=== PATIENT | male | born 1980 | race Caucasian/White ===

== ENCOUNTER 2020-07-05 10:07 | Emergency (ER) | payer OTHER, SELFPAY ==
--- NOTE | 2020-07-05 10:09 | ED.SKABFB ---
HPI - Skin/Abscess/Foreign Bdy General Chief complaint: Skin/Abscess/Foreign Body Stated complaint: mass on back Time Seen by Provider: 07/05/20 10:09 Source: patient and RN notes reviewed History of Present Illness HPI narrative: Patient is a 40-year-old male who presents the urgent care with complaints of an abscess to the left upper back. Patient states is been there for approximately 8 days and has gotten very painful in the last 2 days. Patient states he has been unable to sleep due to the pain. States that he has been using ibuprofen without any relief. Denies of any fever, chills, nausea, vomiting. No other acute complaints. No acute distress noted. Patient aware of the plan of care. Some parts of this dictation were generated by voice recognition software and may contain typographical and/or grammatical inaccuracies. Related Data Home Medications Medication Instructions Recorded Confirmed hydrochlorothiazide 25 mg PO DAILY 07/11/19 07/05/20 omeprazole 40 mg PO DAILY 07/11/19 07/05/20 sildenafil 25 mg PO DAILY 07/11/19 07/05/20 atorvastatin 40 mg PO DAILY 07/05/20 07/05/20 lisinopril 20 mg PO DAILY 07/05/20 07/05/20 Allergies Allergy/AdvReac Type Severity Reaction Status Date / Time morphine AdvReac Migraine Verified 07/05/20 10:22 Review of Systems Review of Systems: Narrative: CONSTITUTIONAL: Denies fever, chills, or sweats. EYES: Denies visual changes, redness, or discharge. ENT: Denies rhinorrhea, congestion, sore throat, or otalgia. CARDIOVASCULAR: Denies chest pain, palpitations, or edema. RESPIRATORY: Denies cough or dyspnea. GASTROINTESTINAL: Denies abdominal pain, nausea, vomiting, or diarrhea. GENITOURINARY: Denies dysuria or hematuria. SKIN: Reports an abscess to the left upper back MUSCULOSKELETAL: Denies back pain, joint pain, or myalgia. NEUROLOGIC: Denies headache, numbness, or weakness. All other systems reviewed are negative, except as documented in HPI. [facility] Social History Social History Gender identity (if verbalized by the patient): Male Comments At the time of my signature, I reviewed and agree with the nursing past medical, surgical, social, and family history. There is no relevant family history pertinent to the patient complaint. Exam Narrative: Exam Narrative: GENERAL: This is a well-nourished, well-developed patient, in no apparent distress. HEAD: normocephalic, atraumatic. EYES: PERRL. Sclera clear/white. Vision is grossly intact. EARS: External ears normal NOSE: External nose normal with no obvious nasal discharge, nares without redness, no rhinorrhea. THROAT: Mucous membranes moist NECK: Neck supple SKIN: 5 x 6.5 cm erythemic tender abscess located to the left scapular region with mild surrounding ecchymosis NEURO: awake, alert, and oriented to person, place and time. There were no obvious focal neurologic abnormalities. EXTREMITIES: No clubbing, cyanosis, or edema. Course Vital Signs Vital signs: Vital Signs Temperature 99.6 F 07/05/20 10:14 Pulse Rate 91 07/05/20 10:14 Respiratory Rate 16 07/05/20 10:14 Blood Pressure 149/97 H 07/05/20 10:14 Pulse Oximetry 98 07/05/20 10:14 Temperature 99.6 F 07/05/20 10:25 Pulse Rate 91 07/05/20 10:25 Respiratory Rate 16 07/05/20 10:25 Blood Pressure 149/97 H 07/05/20 10:25 Pulse Oximetry 98 07/05/20 10:25 Reviewed-patient is informed that they may have pre-hypertension or hypertension based on a blood pressure reading in the department. I recommend the patient call the primary care provider listed on their discharge instructions or a physician of their choice this week to arrange follow-up for further evaluation of possible pre-hypertension or hypertension. MDM - Skin/Abscess/Foreign Bdy MDM Narrative Medical decision making narrative: Advised the patient not to attempt to drain the abscess. It is starting to drain on its own. A warm comp
[2020-07-05 10:14] VITALS: BP 149/97; PULSE 91; RESP 16; TEMP 37.6; O2SAT 98
[2020-07-05 10:25] VITALS: BP 149/97; PULSE 91; RESP 16; TEMP 37.6; O2SAT 98
== END 2020-07-05 10:33 | disposition home or self-care (01) ==
PROVIDERS: Emergency Provider Nurse Practitioner Family; PCP Family Medicine
DX: L02.212 Cutaneous abscess of back [any part, except buttock and flank] (principal); E78.00 Pure hypercholesterolemia, unspecified; I10 Essential (primary) hypertension; K21.9 Gastro-esophageal reflux disease without esophagitis
CPT/HCPCS: 99213; G0463

== ENCOUNTER → 2021-10-11 02:45 | Outpatient (CLI) | payer BC, SELFPAY ==
[2021-10-11 11:33] LABS: SARS-CoV-2 RNA PCR Negative
== END ==
PROVIDERS: PCP Family Medicine; Visit Provider Surgery
DX: Z01.812 Encounter for preprocedural laboratory examination (principal); Z20.822 Contact with and (suspected) exposure to COVID-19
CPT/HCPCS: C9803; U0003; U0005

== ENCOUNTER 2021-10-11 08:46 | Outpatient (CLI) | payer BC, SELFPAY ==
[2021-10-11 09:27] LABS: Anion Gap 6 mmol/L (8-16); Blood Urea Nitrogen 15 mg/dL (9-20); Calcium 9.5 mg/dL (8.4-10.2); Carbon Dioxide 31 mmol/L (22-30); Chloride 99 mmol/L (98-107); Estimated Glomerular Filt Rate > 60; Glucose 119 mg/dL (65-110); Sodium 136 mmol/L (137-145)
--- NOTE | 2021-10-11 09:45 | ECG_ITS ---
Measurements Intervals [place] Rate: 81 P: 59 OK: 136 QRS: -2 QRSD: 123 T: 12 QT: 360 QTc: 420 Interpretive Statements SINUS RHYTHM BASELINE ARTIFACT BORDERLINE ECG NO PREVIOUS ECG AVAILABLE FOR COMPARISON Electronically Signed On 10-11-2021 17:14:49 CDT by Nathan Johnson M.D.
== END 2021-10-11 08:47 | disposition home or self-care (01) ==
LOC: ANHSURGERY 08:50
PROVIDERS: Anesthesiology; PCP Family Medicine; Visit Provider Surgery
DX: Z01.818 Encounter for other preprocedural examination (principal); I10 Essential (primary) hypertension
CPT/HCPCS: 36415; 80048; 93005

== ENCOUNTER 2021-10-14 01:02 | Day surgery (SDC) | payer BC, SELFPAY ==
[2021-10-09 09:29] VITALS: BMI 34.0
--- NOTE | 2021-10-09 09:30 | PC.NURSE ---
Report to the Outpatient Waiting Room, entrance under the green pavilion located off [facility], at time 1100__ on date10/14/21__. OR Time: 1300___. - You and your visitor will be asked a series of questions to screen for COVID 19 for your protection. - A mask is required within the hospital. Preoperative COVID Testing Requirements: No COVID Test needed if: (proof is required; if not received patient will have Rapid Test prior to entry) - Patient has received COVID Vaccine at least 14 days prior to procedure date or - Patient has positive COVID test result within last 90 days of surgery date. COVID Test needed if above criteria is not met If not COVID vaccinated a COVID test must be conducted within 72 hours of surgery and patient is asked to isolate self from time of testing until procedure. You will go to the [facility] for your COVID testing. The [facility] site is located at the corner of [address] [facility]. You will only be called if COVID results are positive and your surgeon may reschedule your elective surgery date. Patients may have clear liquids (water, carbonated beverages, clear teas, apple juice) until 3 hours prior to surgery with a maximum of 20 ounces. - No food from midnight until time of surgery - Infants may have breast milk until 4 hours before surgery, formula 6 hours prior to surgery. - Children will be allowed to drink immediately following surgery. If applicable, please bring a bottle or sippy cup to assist with drinking. Juice, water, soda, and popsicles are readily available. For infants on formula, please bring formula the day of surgery. Pacifiers are allowed. Take the following medications with a SIP of water the morning of surgery: PAIN PILL IF NEEDED Medications to discontinue per physician VIT D3 Date to take last dose 10/09/21 Please no make-up, nail khmer, hairspray, perfume, deodorant, or body powder the day of surgery. No jewelry (including any body piercings) or valuables the day of surgery, leave them at home. Please take a shower or bath the night before, or the morning of, surgery with an antibacterial soap. Wear comfortable, loose fitting clothing. Children are encouraged to wear pajamas. - Jewelry must be removed prior to entering the operating room. Rings and piercings that are not removed may be cut off. - The hospital will not accept responsibility for valuables. - Please leave all valuables, including medications, at home the day of surgery. If you are going home after surgery, a licensed fleet driver must drive you home. - NO public transportation without another adult. - We recommend that an adult stay with you for 24 hours following discharge. - We also recommend that you do not drive, make important decision, drink alcoholic beverages, or take any drugs that were not prescribed by your health care provider for at least 24 hours after your discharge time. For Pediatric surgeries, we recommend two adults accompany the child home (only one inside the building at this time). One visitor will be allowed to accompany the patient into the hospital. Patients visitor will be instructed to remain with patient at all times or leave the building. We will allow the visitor to come back to the postoperative area when patient is ready. Follow any additional instructions given to you from your surgeon. Telephone instructions given to __PATIENT and asked if any additional questions and then verbalized understanding. Patient advised to call surgeon office or pre surgery nurse liaison [phone] if any additional questions.
[2021-10-14] VITALS (9 sets, daily range): BP systolic 85–116; BP diastolic 46–77; PULSE 58–85; RESP 12–18; TEMP 36.2–36.7; O2SAT 93–100
--- NOTE | 2021-10-14 11:26 | WPDHPUPDATE1 ---
History and Physical Update Update Date/Time: 10/14/21 11:26 History and Physical has been reviewed, including an updated exam of the patient. There are NO changes in the patient's condition. Risks, benefits, and alternatives have been discussed and questions answered. Patient agrees to proceed with procedure.
[2021-10-14] MEDS: ACETAMINOPHEN 500 MG TABLET 1000 MG PO (11:28)
[2021-10-14] MEDS: KETOROLAC 15 MG/ML VIAL (*BKC) IV PUSH (11:28)
[2021-10-14] MEDS: LACTATED RINGERS 1,000 ML 30 ML IV CONT ×2 (11:28→13:15)
--- NOTE | 2021-10-14 11:44 | P.PNAN_ITS ---
Anes - Initial Pre Proc Eval Procedure: Operation Date: 10/14/21 13:00 Proposed Procedures p Open Umbilical Hernia Repair with Mesh - Teodora Fisher MD Date/Time: 10/14/21 11:44 Surgeon: Teodora Fisher MD Pre Op Diagnosis: incarcerated umbilical hernia Patient Data Age: 41 Gender: M Height: 1.88 m Weight: 120 kg Allergies Allergy/AdvReac Type Severity Reaction Status Date / Time morphine AdvReac Severe Migraine Verified 10/14/21 11:15 Home Medications Medication Instructions Recorded Confirmed Type hydrochlorothiazide 25 mg PO DAILY 07/11/19 10/14/21 History sildenafil 25 mg PO DAILY PRN 07/11/19 10/14/21 History atorvastatin 40 mg PO DAILY 07/05/20 10/14/21 History lisinopril 20 mg PO DAILY 07/05/20 10/14/21 History acetaminophen 300 mg-codeine 30 mg 1 tablet PO Q8H PRN 10/07/21 10/14/21 History tablet cholecalciferol (vitamin D3) 25 25 mcg PO DAILY 10/07/21 10/14/21 History mcg (1,000 unit) capsule Patient hx anesthesia problems: none Family hx anesthesia problems: none Results Review: All pre-operative results and documents have been reviewed as part of the pre-operative evaluation. 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 Informed Consent: The patient's anesthetic plan and its attendant risks and benefits were discussed with the patient/family/POA. Questions were solicited and answers provided to the satisfaction of the patient/family/POA.
[2021-10-14] MEDS: ceFAZolin 3 GM/D5W 100 ML 100 ML IVPB (11:56)
--- NOTE | 2021-10-14 12:56 | P.OP_ITS ---
Procedure Note - Detailed Date of Procedure 10/14/21 Pre-op Diagnosis incarcerated umbilical hernia Post-op Diagnosis Same Procedure Performed repair of incarcerated umbilical hernia with mesh Surgeon Teodora Fisher MD Anesthesia General and Local Indications 41 y/o M c incarcerated umbilical hernia Findings incarcerated umbilical hernia c omentum and adjacent loop of SB Description of Procedure The patient was taken to the operating room placed in the supine position. After adequate induction of general anesthesia, the patient was prepped and draped in the normal sterile fashion. A time-out was then done to verify the patient's identity, as well as the procedure being performed. I began by localizing the area around the umbilicus. I then made a curvilinear incision in the infraumbilical fold. This was taken down to level fascia. I then was able to bluntly dissect around the umbilicus. I then carefully dissected the umbilicus off the underlying fascia. I then noted a moderatel defect with in carcerated omentum and an adjacent loop of small intestine. I was able to mobilize the incarcerated tissue and reduce it back into the abdominal cavity. This left an approximately 3 cm defect. I then placed a 6.4 cm round piece of ventralex mesh in the underlay position. This was noted to have good, wide local coverage of the defect. I then closed this defect primarily with interrupted 0 Ethibond suture over the underlay mesh repair. I then reapproximated the umbilicus to the fascia with a 3 0 Vicryl U-stitch. The subcutaneous tissue was then closed with 3 0 Vicryl suture. The skin was closed with 4 0 Monocryl subcuticular suture. Dermabond was then placed on the wound. The patient tolerated the procedure well was extubated in the operating room postop. She will be transferred to the recovery room in stable condition. Implants 6.4 cm ventralex mesh in underlay position Estimated Blood Loss 5 Drains No Packing No Pathology None sent Complications No immediate complications Condition Stable Disposition PACU
[2021-10-14] MEDS: fentaNYL CITRATE INJ (*CRX) 100 MCG/2 ML VIAL 25 MCG IV PUSH ×8 (13:00→13:32)
[2021-10-14] MEDS: oxyCODONE HCL (*CRX) 5 MG TAB IR PO (14:10)
== END 2021-10-14 14:48 | disposition home or self-care (01) ==
PROVIDERS: PCP Family Medicine; Visit Provider Surgery
PROC: (CPT 49587; principal; 2021-10-14 13:00)
DX: K42.0 Umbilical hernia with obstruction, without gangrene (principal); I10 Essential (primary) hypertension; E78.5 Hyperlipidemia, unspecified; K21.9 Gastro-esophageal reflux disease without esophagitis; M10.9 Gout, unspecified; E66.9 Obesity, unspecified; Z68.34 Body mass index [BMI] 34.0-34.9, adult
CPT/HCPCS: 49587; 36415; 80048; 93005; A9270; C1781; C9803; J0690; J1100; J1885; J2250; J2405; J2704; J3010; J7120; U0003; U0005

== ENCOUNTER 2023-02-02 08:43 | Outpatient (CLI) | payer BC, SELFPAY ==
--- NOTE | ~2023-02-02 | XR_ITS ---
XR sinus min 3V DATE: 02/02/2023 09:25 INDICATION: Nasal congestion, labored breathing. TECHNIQUE: stephen Reese, lateral, submental vertical views COMPARISON: None FINDINGS: The nasal turbinates are moderately prominent in size. The paranasal sinuses and mastoid air cells are normally developed and aerated. IMPRESSION: Normally aerated paranasal sinuses and mastoid air cells Reviewed, dictated and finalized at location B.
== END 2023-02-02 08:44 | disposition home or self-care (01) ==
PROVIDERS: PCP Family Medicine; Visit Provider Nurse Practitioner Adult Health
DX: R09.81 Nasal congestion (principal); J32.9 Chronic sinusitis, unspecified; R10.13 Epigastric pain; R13.10 Dysphagia, unspecified
CPT/HCPCS: 70220

== ENCOUNTER 2023-02-16 00:46 | Day surgery (SDC) | payer BC, SELFPAY ==
[2023-02-04 15:57] VITALS: BMI 32.2
[2023-02-16 11:46] VITALS: BP 134/84; PULSE 81; RESP 18; TEMP 36.3; O2SAT 99; BMI 33.5
[2023-02-16] MEDS: LACTATED RINGERS 1,000 ML 150 ML IV CONT (11:50)
--- NOTE | 2023-02-16 12:59 | P.PNAN_ITS ---
Anes - Initial Pre Proc Eval Procedure: Operation Date: 02/16/23 13:00 Proposed Procedures p Esophagogastroduodenoscopy - Bryan Landin MD Date/Time: 02/16/23 12:59 Surgeon: Bryan Landin MD Pre Op Diagnosis: dysphagia, epigastric pain Patient Data Age: 43 Gender: M Height: 1.88 m Weight: 118.7 kg Last Vital Signs Temp 36.3 C L 02/16/23 11:46 Pulse 81 02/16/23 11:46 Resp 18 02/16/23 11:46 BP 134/84 02/16/23 11:46 Pulse Ox 99 02/16/23 11:46 O2 Del Method Room Air 02/16/23 11:46 Allergies Allergy/AdvReac Type Severity Reaction Status Date / Time morphine AdvReac Severe Migraine Verified 02/16/23 11:44 Home Medications Medication Instructions Recorded Confirmed Type hydrochlorothiazide 25 mg tablet 25 mg PO DAILY 07/11/19 02/16/23 History sildenafil 25 mg tablet 25 mg PO DAILY PRN E.D. 07/11/19 02/16/23 History atorvastatin 40 mg tablet 40 mg PO DAILY 07/05/20 02/16/23 History lisinopril 20 mg tablet 20 mg PO DAILY 07/05/20 02/16/23 History Patient hx anesthesia problems: none Family hx anesthesia problems: none Results Review: All pre-operative results and documents have been reviewed as part of the pre- operative evaluation. 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 Informed Consent: The patient's anesthetic plan and its attendant risks and benefits were discussed with the patient/family/POA. Questions were solicited and answers provided to the satisfaction of the patient/family/POA.
--- NOTE | 2023-02-16 13:16 | PM.HPGS ---
History of Present Illness History of Present Illness Consent: Risks, benefits, and alternatives have been discussed and questions answered. Patient agrees to proceed with procedure. Chief complaint: dysphagia, epigastric pain Narrative: Noam Carey is a 43 year old male with intermittent chest discomfort after eating that could radiate to epigastric, it does not happen all the time and sometimes also with liquids, recently started omeprazole but not difference. Also chronic sinus drainage that will cause nausea after swallowing lot of phlegm, never had egd. Review of Systems Constitutional: Constitutional: Denies headache(s) and Denies weakness Eyes: Eyes: Denies blurry vision ENT: Reports Normal hearing present, Denies headache(s) and Denies neck pain Cardiovascular: Cardiovascular: Denies chest pain and Denies dyspnea Respiratory: Respiratory: Denies dyspnea Gastrointestinal: Gastrointestinal: Reports no additional gastrointestinal complaints Genitourinary: Genitourinary: Denies dysuria Musculoskeletal: Musculoskeletal: Denies neck pain Integumentary/Breasts: Skin/Breast: Denies dry skin Neurologic: Reports Normal hearing present, Denies headache(s) and Denies weakness Psychiatric: Psychiatric: Denies anxiety Endocrine: Endocrine: Denies change in body appearance Hematologic/Lymphatic: Hematologic/Lymphatic: Denies easy bleeding Allergic/Immunologic: Allergic/Immunologic: Denies urticaria PMFSH Past Medical History Medical History (Updated 02/16/23 @ 13:18 by Bryan Landin MD) Hx of essential hypertension Hx of gastroesophageal reflux (GERD) Hx of gout Hx of hyperlipidemia Non-cardiac chest pain Surgical History Surgical History H/O elbow surgery [id number] Family History Family History Other Colon cancer Hypertension Social History Social History Smoking status: Never smoker Alcohol intake: current Drinks per week: 5 Alcohol use details: Social Substance use: never Substance use type: does not use Living arrangements: with family Occupation/Education: occupation 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 07/11/19 02/16/23 History atorvastatin 40 mg tablet 40 mg PO DAILY 07/05/20 02/16/23 History lisinopril 20 mg tablet 20 mg PO DAILY 07/05/20 02/16/23 History Allergies Allergy/AdvReac Type Severity Reaction Status Date / Time morphine AdvReac Severe Migraine Verified 02/16/23 11:44 Vital Signs Vital Signs - 24 hr 02/16/23 11:46 Temperature 97.4 F L Pulse Rate 81 Respiratory Rate 18 Blood Pressure 134/84 Pulse Oximetry 99 Oxygen Delivery Room Air Exam Const: General: comfortable and no acute distress HENMT: Face/Nose/Sinus: Normal nares present Eyes: General: appearance normal, both eyes and all related structures Neck: Neck: no JVD Resp: Auscultation: clear to auscultation bilaterally Cardio: Rate: regular rate Rhythm: regular rhythm GI: Inspection: non-distended GI Palp: Yes Soft to palpation Skin: General skin exam: normal color Neuro: General: gait normal Speech: normal speech Extrem: General: normal to inspection Psych: Mental Status: mental status grossly normal Assessment and Plan Assessment and plan (1) Non-cardiac chest pain: Code(s): R07.89 - Other chest pain Status: Acute Assessment and Plan: egd with bx
[2023-02-16] MEDS: BENZOCAINE (*SP) 60 ML SPRAY CAN (HURRICAINE) 1 SPRAY MUCOUS MEM (13:22)
[2023-02-16 13:38] VITALS: BP 83/42; PULSE 96; RESP 20; O2SAT 97
[2023-02-16 13:48] VITALS: BP 108/48; PULSE 87; RESP 18; O2SAT 96
[2023-02-16 13:58] VITALS: BP 120/64; PULSE 76; RESP 20; O2SAT 97
--- NOTE | 2023-02-16 15:35 | SUR.PHASEII ---
1525 patient called and said [facility] doesn't have his prescription that Dr Langston ordered. Upon further checking the [facility] system is down [place]. Dr. Langston called and updated. Dr. Langston to call in prescription to [facility] pharmacy in [facility]. 1535 Patient called with update. Ask patient to call pharmacy to ensure the prescription had been received before making a trip. Patient voiced understanding.
== END 2023-02-16 14:10 | disposition home or self-care (01) ==
PROVIDERS: PCP Family Medicine; Visit Provider Internal Medicine Gastroenterology
PROC: 0DJ08ZZ Inspection of Upper Intestinal Tract, Via Natural or Artificial Opening Endoscopic (ICD-10-PCS; CPT 43235; principal; 2023-02-16 13:00)
DX: K22.2 Esophageal obstruction (principal); K21.00 Gastro-esophageal reflux disease with esophagitis, without bleeding; K29.70 Gastritis, unspecified, without bleeding; K44.9 Diaphragmatic hernia without obstruction or gangrene; R13.19 Other dysphagia; R13.10 Dysphagia, unspecified; I10 Essential (primary) hypertension; E78.5 Hyperlipidemia, unspecified; E66.9 Obesity, unspecified; Z68.33 Body mass index [BMI] 33.0-33.9, adult
CPT/HCPCS: 43249; 43239; 88305; 88312; C1726; J2704; J7120

== ENCOUNTER 2023-04-27 01:23 | Day surgery (SDC) | payer BC, SELFPAY ==
[2023-04-23 10:38] VITALS: BMI 32.1
[2023-04-27 08:18] VITALS: BP 124/67; PULSE 73; RESP 18; TEMP 36.3; O2SAT 99
[2023-04-27] MEDS: LACTATED RINGERS 1,000 ML 150 ML IV CONT (08:26)
--- NOTE | 2023-04-27 08:57 | P.PNAN_ITS ---
Anes - Initial Pre Proc Eval Procedure: Operation Date: 04/27/23 09:30 Proposed Procedures p Esophagogastroduodenoscopy - Bryan Landin MD Date/Time: 04/27/23 08:57 Surgeon: Bryan Landin MD Pre Op Diagnosis: esophageal ring Patient Data Age: 43 Gender: M Height: 1.88 m Weight: 117.4 kg Last Vital Signs Temp 97.3 F L 04/27/23 08:18 Pulse 73 04/27/23 08:18 Resp 18 04/27/23 08:18 BP 124/67 04/27/23 08:18 Pulse Ox 99 04/27/23 08:18 O2 Del Method Room Air 04/27/23 08:18 Allergies Allergy/AdvReac Type Severity Reaction Status Date / Time morphine AdvReac Severe Migraine Verified 04/27/23 08:17 Home Medications Medication Instructions Recorded Confirmed Type hydrochlorothiazide 25 mg tablet 25 mg PO DAILY 07/11/19 04/23/23 History sildenafil 25 mg tablet 25 mg PO DAILY PRN E.D. 07/11/19 04/23/23 History atorvastatin 40 mg tablet 40 mg PO DAILY 07/05/20 04/23/23 History lisinopril 20 mg tablet 20 mg PO DAILY 07/05/20 04/23/23 History pantoprazole 40 mg tablet,delayed 40 mg PO Q12H #60 tabs 02/16/23 04/23/23 Rx release sucralfate 100 mg/mL oral 1 g (10 mL) PO Q8H 14 days #420 mL 02/16/23 04/23/23 Rx suspension (Carafate) Patient hx anesthesia problems: none Family hx anesthesia problems: none Results Review: All pre-operative results and documents have been reviewed as part of the pre- operative evaluation. [facility] Past Medical History Medical History (Updated 02/16/23 @ 13:18 by Bryan Landin MD) Hx of essential hypertension Hx of gastroesophageal reflux (GERD) Hx of gout Hx of hyperlipidemia Non-cardiac chest pain Surgical History Surgical History H/O elbow surgery [id number] Family History Family History Other Colon cancer Hypertension Social History Social History Smoking status: Never smoker Alcohol intake: current Drinks per week: 5 Alcohol use details: Social Substance use: never Substance use type: does not use Living arrangements: with family Occupation/Education: occupation 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 Informed Consent: The patient's anesthetic plan and its attendant risks and benefits were discussed with the patient/family/POA. Questions were solicited and answers provided to the satisfaction of the patient/family/POA.
--- NOTE | 2023-04-27 09:14 | PM.HPGS ---
History of Present Illness History of Present Illness Consent: Risks, benefits, and alternatives have been discussed and questions answered. Patient agrees to proceed with procedure. Chief complaint: esophageal ring Narrative: Noam Carey is a 43 year old male with gerd and erosive esophagitis 02/2023, also ring that was dilated. Now doing much better, no more dysphagia and using pantoprazole bid Review of Systems Constitutional: Constitutional: Denies headache(s) and Denies weakness Eyes: Eyes: Denies blurry vision ENT: Reports Normal hearing present, Denies headache(s) and Denies neck pain Cardiovascular: Cardiovascular: Denies chest pain and Denies dyspnea Respiratory: Respiratory: Denies dyspnea Gastrointestinal: Gastrointestinal: Reports no additional gastrointestinal complaints Genitourinary: Genitourinary: Denies dysuria Musculoskeletal: Musculoskeletal: Denies neck pain Integumentary/Breasts: Skin/Breast: Denies dry skin Neurologic: Reports Normal hearing present, Denies headache(s) and Denies weakness Psychiatric: Psychiatric: Denies anxiety Endocrine: Endocrine: Denies change in body appearance Hematologic/Lymphatic: Hematologic/Lymphatic: Denies easy bleeding Allergic/Immunologic: Allergic/Immunologic: Denies urticaria PMFSH Past Medical History Medical History (Updated 04/27/23 @ 09:15 by Bryan Landin MD) Erosive esophagitis Hx of essential hypertension Hx of gastroesophageal reflux (GERD) Hx of gout Hx of hyperlipidemia Non-cardiac chest pain Surgical History Surgical History H/O elbow surgery [id number] Family History Family History Other Colon cancer Hypertension Social History Social History Smoking status: Never smoker Alcohol intake: current Drinks per week: 5 Alcohol use details: Social Substance use: never Substance use type: does not use Living arrangements: with family Occupation/Education: occupation 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 07/11/19 04/23/23 History atorvastatin 40 mg tablet 40 mg PO DAILY 07/05/20 04/23/23 History lisinopril 20 mg tablet 20 mg PO DAILY 07/05/20 04/23/23 History pantoprazole 40 mg tablet,delayed 40 mg PO Q12H #60 tabs 02/16/23 04/23/23 Rx release sucralfate 100 mg/mL oral 1 g (10 mL) PO Q8H 14 days #420 mL 02/16/23 04/23/23 Rx suspension (Carafate) Allergies Allergy/AdvReac Type Severity Reaction Status Date / Time morphine AdvReac Severe Migraine Verified 04/27/23 08:17 Vital Signs Vital Signs - 24 hr 04/27/23 08:18 Temperature 97.3 F L Pulse Rate 73 Respiratory Rate 18 Blood Pressure 124/67 Pulse Oximetry 99 Oxygen Delivery Room Air Exam Const: General: comfortable and no acute distress HENMT: Face/Nose/Sinus: Normal nares present Eyes: General: appearance normal, both eyes and all related structures Neck: Neck: no JVD Resp: Auscultation: clear to auscultation bilaterally Cardio: Rate: regular rate Rhythm: regular rhythm GI: Inspection: non-distended GI Palp: Yes Soft to palpation Skin: General skin exam: normal color Neuro: General: gait normal Speech: normal speech Extrem: General: normal to inspection Psych: Mental Status: mental status grossly normal Assessment and Plan Assessment and plan (1) Erosive esophagitis: Code(s): K22.10 - Ulcer of esophagus without bleeding Status: Acute Assessment and Gladis
[2023-04-27] MEDS: BENZOCAINE (*SP) 60 ML SPRAY CAN (HURRICAINE) 1 SPRAY MUCOUS MEM (09:18)
[2023-04-27 09:26] VITALS: BP 89/43; PULSE 76; RESP 21; O2SAT 98
[2023-04-27 09:36] VITALS: BP 103/68; PULSE 68; RESP 22; O2SAT 98
[2023-04-27 09:46] VITALS: BP 111/68; PULSE 70; RESP 22; O2SAT 98
== END 2023-04-27 10:03 | disposition home or self-care (01) ==
PROVIDERS: PCP Family Medicine; Visit Provider Internal Medicine Gastroenterology
PROC: 0DJ08ZZ Inspection of Upper Intestinal Tract, Via Natural or Artificial Opening Endoscopic (ICD-10-PCS; CPT 43235; principal; 2023-04-27 09:30)
DX: K21.00 Gastro-esophageal reflux disease with esophagitis, without bleeding (principal); K44.9 Diaphragmatic hernia without obstruction or gangrene; K29.70 Gastritis, unspecified, without bleeding; I10 Essential (primary) hypertension; K21.9 Gastro-esophageal reflux disease without esophagitis; E78.5 Hyperlipidemia, unspecified; Z80.0 Family history of malignant neoplasm of digestive organs; E66.9 Obesity, unspecified; Z68.33 Body mass index [BMI] 33.0-33.9, adult
CPT/HCPCS: 43239; 88305; J2704; J7120

== ENCOUNTER 2023-05-04 08:49 | Outpatient (CLI) | payer BC, SELFPAY ==
[2023-05-04 12:34] LABS: Eosinophils Percent Auto 0.7 % (0-4.4); Hematocrit 49.7 % (42.0-52.0); Hemoglobin 16.8 g/dL (14.0-18.0); Immature Granulocyte Absolute 0.02 K/mm3 (0.00-0.031); Immature Granulocyte Percent A 0.5 % (0-0.5); Lymphocytes Absolute Auto 1.62 K/mm3 (0.9-3.2); Lymphocytes Percent Auto 38.6 % (18.3-44.2); Mean Corpuscular HGB Conc 33.8 g/dl (32-36); Mean Corpuscular Hemoglobin 31.6 pg (26-34); Mean Corpuscular Volume 93.6 fl (80-100); Mean Platelet Volume 10.3 fl (7.4-10.4); Monocytes Absolute Auto 0.6 K/mm3 (0.1-0.6); Monocytes Percent Auto 13.1 % (2.6-8.5); Neutrophils Absolute Auto 1.9 K/mm3 (1.3-6.7); Neutrophils Percent Auto 46.1 % (45.5-73.1); Platelet Count Result 264 k/mm3 (150-375); Red Blood Count 5.31 M/mm3 (4.6-6.20); Red Cell Distribution Width 11.9 % (11.5-14.5); White Blood Count 4.2 K/mm3 (4.5-10.0)
[2023-05-07 06:31] LABS: FSH 0.8 mIU/mL (1.6-8.0); LH <0.2 mIU/mL (1.5-9.3)
[2023-05-07 13:30] LABS: Testosterone Free 203.4 pg/mL (35.0-155.0); Testosterone Total 820 ng/dL (250-1100)
[2023-05-07 19:41] LABS: Sex Hormone Binding Globulin 18 nmol/L (10-50)
[2023-05-11 22:01] LABS: Estradiol, Ultrasensitive 37 pg/mL (< OR = 29)
== END 2023-05-04 08:50 | disposition home or self-care (01) ==
LOC: ANHWCLAB 08:50
PROVIDERS: PCP Family Medicine; Visit Provider Nurse Practitioner Adult Health
DX: E29.1 Testicular hypofunction (principal); R68.82 Decreased libido; I10 Essential (primary) hypertension
CPT/HCPCS: 36415; 82670; 83001; 83002; 84270; 84402; 84403; 85025

== ENCOUNTER 2023-11-18 09:37 | Outpatient (CLI) | payer BC, SELFPAY ==
[2023-11-18 16:40] LABS: Basophils Percent Auto 0.8 % (0.2-1.2); Eosinophils Percent Auto 0.8 % (0-4.4); Hematocrit 48.8 % (42.0-52.0); Hemoglobin 16.5 g/dL (14.0-18.0); Immature Granulocyte Absolute 0.02 K/mm3 (0.00-0.031); Immature Granulocyte Percent A 0.5 % (0-0.5); Lymphocytes Absolute Auto 1.46 K/mm3 (0.9-3.2); Mean Corpuscular HGB Conc 33.8 g/dl (32-36); Mean Corpuscular Volume 94.8 fl (80-100); Mean Platelet Volume 10.2 fl (7.4-10.4); Monocytes Absolute Auto 0.4 K/mm3 (0.1-0.6); Monocytes Percent Auto 11.2 % (2.6-8.5); Neutrophils Absolute Auto 1.9 K/mm3 (1.3-6.7); Neutrophils Percent Auto 48.7 % (45.5-73.1); Platelet Count Result 240 k/mm3 (150-375); Red Blood Count 5.15 M/mm3 (4.6-6.20); Red Cell Distribution Width 12.5 % (11.5-14.5); White Blood Count 3.8 K/mm3 (4.5-10.0)
[2023-11-18 16:50] LABS: Alanine Aminotransferase 82 U/L (6-50); Albumin Level 5.1 g/dL (3.5-5.1); Alkaline Phosphatase 69 U/L (38-126); Anion Gap 12 mmol/L (4-12); Aspartate Amino Transferase 72 U/L (17-59); Bilirubin,Total 0.9 mg/dL (0.2-1.3); Blood Urea Nitrogen 21 mg/dL (9-20); Calcium 10.2 mg/dL (8.4-10.2); Carbon Dioxide 26 mmol/L (22-30); Chloride 101 mmol/L (98-107); Cholesterol 294 mg/dL (0-200); Estimated Glomerular Filt Rate > 60; Glucose 103 mg/dL (65-110); HDL Direct 55 mg/dL; Potassium 4.2 mmol/L (3.4-5.0); Sodium 139 mmol/L (137-145); Triglycerides 98 mg/dL (<150)
[2023-11-18 17:00] LABS: LDL Cholesterol Direct 212 mg/dL
[2023-11-23 11:39] LABS: Testosterone Free 65.4 pg/mL (35.0-155.0); Testosterone Total 325 ng/dL (250-1100)
== END 2023-11-18 09:38 | disposition home or self-care (01) ==
LOC: ANHWCLAB 09:38
PROVIDERS: PCP Family Medicine; Visit Provider Registered Nurse
DX: E29.1 Testicular hypofunction (principal); E78.5 Hyperlipidemia, unspecified; I10 Essential (primary) hypertension
CPT/HCPCS: 36415; 80053; 80061; 84402; 84403; 85025

== ENCOUNTER 2024-05-18 10:18 | Outpatient (CLI) | payer BC, SELFPAY ==
[2024-05-18 11:04] LABS: Alanine Aminotransferase 68 U/L (6-50); Albumin Level 5.2 g/dL (3.5-5.1); Alkaline Phosphatase 56 U/L (38-126); Anion Gap 11 mmol/L (4-12); Aspartate Amino Transferase 60 U/L (17-59); Bilirubin,Total 1.3 mg/dL (0.2-1.3); Blood Urea Nitrogen 21 mg/dL (9-20); Calcium 9.8 mg/dL (8.4-10.2); Carbon Dioxide 31 mmol/L (22-30); Chloride 95 mmol/L (98-107); Cholesterol 162 mg/dL (0-200); Estimated Glomerular Filt Rate > 60; Glucose 100 mg/dL (65-110); HDL Direct 41 mg/dL; Potassium 4.6 mmol/L (3.4-5.0); Sodium 137 mmol/L (137-145); Triglycerides 69 mg/dL (<150)
[2024-05-18 11:15] LABS: LDL Cholesterol Direct 93 mg/dL
== END 2024-05-18 10:19 | disposition home or self-care (01) ==
LOC: ANHLAB 10:20
PROVIDERS: PCP Family Medicine; Visit Provider Registered Nurse
DX: E78.5 Hyperlipidemia, unspecified (principal); I10 Essential (primary) hypertension; N52.9 Male erectile dysfunction, unspecified; E29.1 Testicular hypofunction
CPT/HCPCS: 36415; 80053; 80061; 82670; 84402; 84403

== ENCOUNTER 2024-10-08 11:23 | Outpatient (CLI) | payer BC, SELFPAY ==
--- OUTSIDE RECORDS SUMMARY | 2024-10-08 11:27 | XMS_ITS | Clinical Summary ---
Author Organization [facility] Address [address] [place] [address] Phone Care Team Providers Care Boat Canvas Maker And Installer Name Role Phone Adrián Alicea MD Primary Care Provider Allergies Active Allergy Reactions Criticality Noted Date Comments Morphine Other (see Comments) 12/10/2018 Causes migraine Medications lisinopril (PRINIVIL, ZESTRIL) 20 MG Tablet Take 20 mg by mouth daily. Active hydroCHLOROthiaz gilbert 25 MG Tablet Take 25 mg by mouth daily. Active HYDROcodone-acet aminophen (NORCO) 5-325 MG Tablet Take 1 Tab by mouth every 4 hours as needed. Active Immunizations Immunization Administration Dates Next Due TDAP Vaccine 12/10/2018 Social History Tobacco Use Types Packs/Day Years Used Date Smoking Tobacco: Never Smokeless Tobacco: Never Alcohol Use Standard Drinks/Week Comments Yes 0 (1 standard drink = 0.6 oz pur e alcohol) socially Sex and Gender Information Value Date Recorded Sex Assigned at Not on file Legal Sex Male 9:10 PM CDT Gender Identity Not on file Sexual Orientation Not on file Last Filed Vital Signs Vital Sign Reading Time Taken Comments Blood Pressure 153/94 12/10/2018 10:11 AM CDT Pulse 92 12/10/2018 10:11 AM CDT Temperature 36.9 C (98.4 F) 12/10/2018 10:11 AM CDT Respiratory Rate 16 12/10/2018 10:11 AM CDT Oxygen Saturation 98% 12/10/2018 10:11 AM CDT Inhaled Oxygen Concentration - - Weight 115.7 kg (255 lb) 12/10/2018 10:11 AM CDT Height 188 cm (6' 2 ) 12/10/2018 10:11 AM CDT Body Mass Index 32.74 12/10/2018 10:11 AM CDT Plan of Treatment Not on file Insurance [facility] Care Teams Boat Canvas Maker And Installer Relationship Specialty Start Date End Date Adrián Alicea MD [address] [address] PCP - General Family Medicine 12/10/18
[2024-10-08 12:24] LABS: Basophils Absolute Auto 0.1 K/mm3 (0.0-0.1); Basophils Percent Auto 1.1 % (0.2-1.2); Eosinophils Absolute Auto 0.1 K/mm3 (0-0.3); Eosinophils Percent Auto 1.3 % (0-4.4); Hemoglobin 16.7 g/dL (14.0-18.0); Immature Granulocyte Absolute 0.06 K/mm3 (0.00-0.031); Immature Granulocyte Percent A 1.1 % (0-0.5); Lymphocytes Absolute Auto 1.65 K/mm3 (0.9-3.2); Lymphocytes Percent Auto 30.1 % (18.3-44.2); Mean Corpuscular HGB Conc 34.1 g/dl (32-36); Mean Corpuscular Hemoglobin 32.9 pg (26-34); Mean Corpuscular Volume 96.6 fl (80-100); Mean Platelet Volume 9.8 fl (7.4-10.4); Monocytes Absolute Auto 0.7 K/mm3 (0.1-0.6); Monocytes Percent Auto 12.8 % (2.6-8.5); Neutrophils Percent Auto 53.6 % (45.5-73.1); Platelet Count Result 268 k/mm3 (150-375); Red Blood Count 5.07 M/mm3 (4.6-6.20); Red Cell Distribution Width 12.5 % (11.5-14.5); White Blood Count 5.5 K/mm3 (4.5-10.0)
[2024-10-08 12:54] LABS: Alanine Aminotransferase 76 U/L (6-50); Albumin Level 4.8 g/dL (3.5-5.1); Alkaline Phosphatase 64 U/L (38-126); Anion Gap 12 mmol/L (4-12); Aspartate Amino Transferase 53 U/L (17-59); Bilirubin,Total 1.2 mg/dL (0.2-1.3); Blood Urea Nitrogen 18 mg/dL (9-20); Calcium 9.7 mg/dL (8.4-10.2); Carbon Dioxide 28 mmol/L (22-30); Chloride 97 mmol/L (98-107); Cholesterol 179 mg/dL (0-200); Estimated Glomerular Filt Rate > 60; Glucose 100 mg/dL (65-110); HDL Direct 48 mg/dL; Potassium 4.2 mmol/L (3.4-5.0); Sodium 137 mmol/L (137-145); Triglycerides 87 mg/dL (<150)
[2024-10-08 13:05] LABS: LDL Cholesterol Direct 112 mg/dL
[2024-10-08 13:09] LABS: Free T4 Free Thyroxine 0.79 ng/dL (0.78-2.19); Vitamin D 25 Hydroxy 38.7 ng/mL
[2024-10-08 13:23] LABS: Prostate Specific Antigen 0.5 ng/mL (< OR = 4.0); Total Triiodothyronine (T3) 1.32 NG/ML (0.97-1.69)
== END 2024-10-08 11:24 | disposition home or self-care (01) ==
LOC: ANHLAB 11:26
PROVIDERS: PCP Family Medicine; Visit Provider Family Medicine
DX: D64.9 Anemia, unspecified (principal); E03.9 Hypothyroidism, unspecified; E29.1 Testicular hypofunction; E55.9 Vitamin D deficiency, unspecified; N40.0 Benign prostatic hyperplasia without lower urinary tract symptoms
CPT/HCPCS: 36415; 80053; 80061; 82306; 82670; 84153; 84402; 84403; 84439; 84443; 84480; 85025

== ENCOUNTER 2024-11-21 11:17 | Outpatient (CLI) | payer BC, SELFPAY ==
--- OUTSIDE RECORDS SUMMARY | 2024-11-21 11:31 | XMS_ITS | Clinical Summary ---
Author Organization [facility] Address [address] [place] [address] Phone Care Team Providers Care Reimbursement Director Name Role Phone Adrián Alicea MD Primary [...] Plan of Treatment Not on file Insurance [facility] Care Teams Reimbursement Director Relationship Specialty Start Date End Date Adrián Alicea MD [address] [address] PCP - General Family Medicine 12/10/18
[2024-11-21 12:33] LABS: Free T4 Free Thyroxine 1.09 ng/dL (0.78-2.19)
[2024-11-21 12:38] LABS: Thyroid Stimulating Hormone 0.447 uIU/mL (0.465-4.680); Total Triiodothyronine (T3) 1.37 NG/ML (0.97-1.69)
== END 2024-11-21 11:18 | disposition home or self-care (01) ==
LOC: ANHLAB 11:18
PROVIDERS: PCP Family Medicine; Visit Provider Family Medicine
DX: E03.9 Hypothyroidism, unspecified (principal)
CPT/HCPCS: 36415; 84439; 84443; 84480

== ENCOUNTER 2025-03-29 07:54 | Outpatient (CLI) | payer BC, SELFPAY ==
--- OUTSIDE RECORDS SUMMARY | 2025-03-29 08:21 | XMS_ITS | Clinical Summary ---
Author Organization [facility] Address [address] [place] [address] Phone Care Team Providers Care Grinding Machine Operator Portable Name Role Phone Adrián Alicea MD Primary Care Provider [phone] Allergies Active Allergy Reactions Criticality Noted Date [...] 10:11 AM CDT Height 188 cm (6' 2) 12/10/2018 10:11 AM CDT Body Mass Index 32.74 12/10/2018 10:11 AM CDT Plan of Treatment Not on file Insurance [facility] Care Teams Grinding Machine Operator Portable Relationship Specialty Start Date End Date Adrián Alicea MD [address] [address] PCP - General Family Medicine 12/10/18
--- NOTE | 2025-04-07 13:46 | WPDHOMESLEEP ---
Sleep Study - Home Unattended Date of Study: 03/29/25 Ordering Provider: Adrián Alicea MD Interpreting Provider: Eden Maldonado MD Home Sleep Study Type: Watch PAT Height: 1.88 m Weight: 122.47 kg Body Mass Index: 34.7 Neck Circumference (inches): 19.75 [place]: 18 Reason for Sleep Study Hypersomnolence Sleep History Noam Carey is a 45-year-old man with non refreshing sleep and excessive daytime sleepiness. He has a medical comorbidity of hypertension. he often has difficulty falling asleep and remaining asleep. When he awakens at night he does not have difficulty returning to sleep. He does wake up earlier in the morning than desired. He is not anxious about his sleep and he does not take any sedatives to get to sleep. He also has loud snoring, witnessed apneas and episodes of choking or gasping during the night. He has difficulty breathing when he sleeps on his back. He awakens with a morning headache, dry mouth, he has heartburn at night and he wakes twice at night to urinate. H He is tired on waking and has an urge to fall asleep during the day. He has drowsy driving. He has an urge to move his legs in the evening, this is worse with rest and gets better with activity. He has muscle weakness with strong emotion and vivid dreams during daytime naps. He does not feel paralyzed on waking or falling asleep nor does he have vivid dreamlike scenes on waking or falling asleep. He does not clench or grind his teeth. He does not kick excessively at night but definitely has uncomfortable feelings in his legs in the evening. Normal bedtime is 10:00 p.m. on work days and days off. He does not take naps. Habits: Tobacco : none Caffeine : 1-2 cups daily Alcohol : 1-2 nights per week, 2 glasses Recreational substances : none reported PMF Past Medical History Medical History Erosive esophagitis Non-cardiac chest pain Hx of essential hypertension Hx of hyperlipidemia Hx of gout Hx of gastroesophageal reflux (GERD) Surgical History Surgical History H/O elbow surgery [id number] Family History Family History Father Diabetes mellitus Hypertension Mother Cancer Sibling Alcoholism Other Asthma Other Colon cancer Social History Social History Smoking status: Never smoker Alcohol intake: current Drinks per week: 5 Alcohol use details: Social Substance use: never Substance use type: does not use Do You Feel Safe in your Home?: Yes Lack of Transportation: No Lack of Food: Never True Current Housing: I Have Housing Concerned About Future Housing: No Difficulty Paying Gas/Electric Bills: No Difficulty Paying for Meds: No Currently Unemployed: No Education: Associate Degree Difficulty w/ Childcare or Family Care: No Living arrangements: with family Occupation/Education: occupation 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 07/11/19 10/29/23 History lisinopril 20 mg tablet 20 mg PO DAILY 07/05/20 10/29/23 History pantoprazole 40 mg tablet,delayed 40 mg PO Q12H #60 tabs 02/16/23 10/29/23 Rx release anastrozole 1 mg tablet 1 mg PO DAILY 10/29/23 10/29/23 History fluticasone propionate 50 1 - 2 spray intranasal BID #16 mL 10/29/23 10/29/23 Rx mcg/actuation nasal spray,suspension (Flonase Allergy Relief) Sleep Procedure The sleep study was completed using ApervitaPAT a technically adequate device with seven channels: peripheral arterial tone, actigraphy, body position, snore, respiratory movement, pulse oximetry, sleep staging, and heart rate. Prior to using the device, the patient received verbal and written instructions for its application and was provided with the help desk phone number for additional telephonic instruction with 24-hour availability of qualified personnel to answer questions. Sleep Architecture The total recording time is 6 hrs, 57 min. The total sleep time is 6 hrs, 4 min. Sleep latency is 29 minutes. REM latency is 100 minutes. The patient had 5 episodes of waking. Sleep architecture shows 12.8% deep sleep, 64.4% light sleep, and 22.8% stage REM. The patient spent 2.5% of total sleep time in the supine position. Sleep efficiency was 87%. Respiratory Analysis The overall AHI (pAHI 3%:) is 58.2. The central AHI is 0.3. The AHI was 52.4 in NREM and 77.8 in REM sleep. The AHI was not able to be determined accoriding to body position, however he was in supine sleep only 9 min, 2.2% of the night. Percent of Blaine Adan respirations is 0.0. Oximetry Data The oxygen desaturation index (BETHANY 4%:) is 41.8. The mean saturation is 91%, and the lowest saturation is 68%. Time spent with saturation < 88% is 53.3 minutes. Snoring Profile Snoring average intensity is 59 dB. The patient snored above 45 decibels for 328.1 minutes, 90.1% of sleep time. Cardiac Profile The average pulse rate is 88 beats per minutes. The lowest pulse rate is 65 bpm. The highest pulse rate is 166 bpm, very briefly, may be spurious. Cardiac rhythm analysis in sleep does not show atrial fibrillation. Assessment and Plan Assessment and Plan (1) Obstructive sleep apnea: Code(s): G47.33 - Obstructive sleep apnea (adult) (pediatric) Status: Acute Assessment and Plan: This home sleep test using WatchPat on 03/29/2025 shows severe obstructive sleep apnea, overall apnea-hypopnea index 58.2 with desaturation to 68%, 53.3 minutes spent below 88% with loud continuous snoring throughout the entire night. Due to the severity of his apnea and the significant hypoxemia, auto PAP is not an option. He should have a full night CPAP titration in the sleep lab with a sleep aid available to use, if needed, consider Ambien 5 or 10 mg, Lunesta 2 or 3 mg. His mean oxygen saturation is 91%, lower than normal, especially for a non-smoker. Clinical correlation advised, consider CXR and/or PFTs. BMI is 34.7. Weight management is advised. Clinical data suggests that weight loss of 10% can reduce the severity of respiratory events and snoring and improve AHI by as much as 25%. His sleep questionnaire suggests that he has restless legs syndrome. He has an urge to move his legs in the evenings, this is worse with rest and better with activities. This is consistent with RLS. Duing the CPAP titration, his leg movements will be monitored. Ferritin level is indicated to exclude iron deficiency anemia as a contributing factor. Ferritin should be 75 ng/mL or greater. If ferritin is below this, iron supplementation should be given to achieve ferritin of 75 ng/mL. There are nonpharmacologic methods to treat limb movements including daily exercise, stretching calf muscles before bed, avoiding excessive amounts of caffeine and alcohol, vitamin B supplementation, magnesium lotion massaged into legs before bed, and use of a weighted blanket. Pharmacologic therapy is very effective for restless legs syndrome and limb movements during sleep and may include [id number] voltage-gated calcium channel ligands such as gabapentin which is preferable to dopaminergic agents which can have augmentation. Other treatments can include opioids and benzodiazepines. Data The data obtained during this sleep study is adequate for interpretation. Certification This sleep study has been reviewed by a board certified sleep medicine physician.
[2025-04-07 14:02] VITALS: BMI 34.7
== END 2025-03-30 09:28 | disposition home or self-care (01) ==
PROVIDERS: PCP Family Medicine; Visit Provider Family Medicine
DX: G47.33 Obstructive sleep apnea (adult) (pediatric) (principal)
CPT/HCPCS: 95800

== ENCOUNTER 2025-04-25 08:00 | Outpatient (CLI) | payer BC, SELFPAY ==
--- OUTSIDE RECORDS SUMMARY | 2025-04-25 08:12 | XMS_ITS | Clinical Summary ---
Author Organization [facility] Address [address] [place] [address] Phone Care Team Providers Care Slurry Tank Operator Name Role Phone Adrián Alicea MD Primary Care Provider [phone] Allergies Active Allergy Reactions Criticality Noted Date [...] Plan of Treatment Not on file Insurance [facility] Care Teams Slurry Tank Operator Relationship Specialty Start Date End Date Adrián Alicea MD [address] [address] PCP - General Family Medicine 12/10/18
--- NOTE | 2025-05-22 09:11 | P.SLEEP_ITS ---
Sleep Study Date of Study: 04/25/25 Ordering Provider: Jelena Tesfaye, CAMERON Interpreting Physician: Gardenia Toussaint DO Sleep Study Type: BiPAP Titration Height: 1.88 m Weight: 122.47 kg Body Mass Index: 34.7 Neck Circumference (inches): 21 [place]: 18 Reason for Sleep Study Hypersomnolence Sleep History Noam Carey is a 45-year-old man with non refreshing sleep and excessive daytime sleepiness. He has a medical comorbidity of hypertension. he often has difficulty falling asleep and remaining asleep. When he awakens at night he does not have difficulty returning to sleep. He does wake up earlier in the morning than desired. He is not anxious about his sleep and he does not take any sedatives to get to sleep. He also has loud snoring, witnessed apneas and episodes of choking or gasping during the night. He has difficulty breathing when he sleeps on his back. He awakens with a morning headache, dry mouth, he has heartburn at night and he wakes twice at night to urinate. H He is tired o n waking and has an urge to fall asleep during the day. He has drowsy driving. He has an urge to move his legs in the evening, this is worse with rest and gets better with activity. He has muscle weakness with strong emotion and vivid dreams during daytime naps. He does not feel paralyzed on waking or falling asleep nor does he have vivid dreamlike scenes on waking or falling asleep. He does not clench or grind his teeth. He does not kick excessively at night but definitely has uncomfortable feelings in his legs in the evening. Normal bedtime is 10:00 p.m. on work days and days off. He does not take naps. Habits: Tobacco : none Caffeine : 1-2 cups daily Alcohol : 1-2 nights per week, 2 glasses Recreational substances : none reported PMF Past Medical History Medical History Erosive esophagitis Non-cardiac chest pain Hx of essential hypertension Hx of hyperlipidemia Hx of gout Hx of gastroesophageal reflux (GERD) Surgical History Surgical History H/O elbow surgery [id number] Family History Family History Father Diabetes mellitus Hypertension Mother Cancer Sibling Alcoholism Other Asthma Other Colon cancer Social History Social History Smoking status: Never smoker Alcohol intake: current Drinks per week: 5 Alcohol use details: Social Substance use: never Substance use type: does not use Do You Feel Safe in your Home?: Yes Lack of Transportation: No Lack of Food: Never True Current Housing: I Have Housing Concerned About Future Housing: No Difficulty Paying Gas/Electric Bills: No Difficulty Paying for Meds: No Currently Unemployed: No Education: Associate Degree Difficulty w/ Childcare or Family Care: No Living arrangements: with family Occupation/Education: occupation 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 06/1410/29/23 History lisinopril 20 mg tablet 20 mg PO DAILY 07/05/2010/11 History pantoprazole 40 mg tablet,delayed 40 mg PO Q12H #60 ta bs 02/16/23 10/29/23 Rx release anastrozole 1 mg tablet 1 mg PO DAILY 10/29/2310/28 History fluticasone propionate 50 1 - 2 spray intranasal BID # 16 mL 10/29/23 10/29/23 Rx mcg/actuation nasal spray,suspension (Flonase Allergy Relief) Sleep Procedure A full night CPAP Titration using the [employer] multi-channel system recorded the standard physiologic parameters including EEG, EOG, submentalis EMG, anterior tibialis EMG, EKG, body position, nasal and oral airflow using nasal pressure sensor and thermistor.? Respiratory parameters of chest and abdominal movements were recorded with Respiratory Inductance Plethysmography belts. Oxygen saturation was recorded by pulse oximetry. Video monitoring was also performed. Sleep stages, periodic limb movements, and EEG arousals were scored in 30 second epochs according to the criteria of the AASM Scoring Manual. The Apnea-Hypopnea Index was calculated using [facility] guidelines for definition of hypopnea with 4% O2 desaturations while scoring respiratory events. Sleep Architecture The total recording time was 427.0 minutes.? The total sleep time was 295.5 minutes. Sleep latency was 27.1 minutes. REM latency was 124.5 minutes. Sleep efficiency was 69.2%. The patient had 20 awakenings for an awakening index of 4.1. Wake after Sleep Onset time was 104.0 minutes. The patient spent 16.0 minutes, 5.4% of total sleep time in Stage N1. The patient spent 177.5 minutes, 60.1% in Stage N2. The patient spent 27.0 minutes, 9.1% in Stage N3. The patient spent 75.0 minutes, 25.4% in Stage REM. Respiratory Analysis The patient had 182 hypopneas, 9 obstructive apneas and 1 central apnea for an overall Apnea Hypopnea Index of 39.0 events per hour. The REM Apnea Hypopnea Index was 1.6. The NREM Apnea Hypopnea Index was 51.7. The patient had a Central Apnea Hypopnea Index of 0.2. There was no evidence of Blaine-Adan Respirations. The patient was started on CPAP 5 cm H2O and titrated to BPAP 25/19 cm H2O due to hypopneas. The patient was able to fall asleep starting on CPAP 6 cm H2O. The patient was able to achieve REM sleep starting on CPAP 16 cm H2O. The patient was able to achieve a residual AHI less than 5 with both NREM and REM sleep on the final pressure setting. On BPAP 25/19 cm H2O, the patient spent 8.5 minutes in NREM and 58 minutes in REM with 2 hypopneas, resulting in an AHI of 1.8. The patient had a sleep efficiency of 73.1% on this pressure setting. Arousals There were 105 total arousals for an arousal index of 21.3. There were 32 spontaneous arousals for an index of 6.5. ?There were 70 arousals due to respiratory events for an index of 14.2. There were 0 arousals due to periodic limb movements for an index of 0.? There were 3 arousals due to isolated limb movements for an index of 0.6. Periodic Limb Movements The patient had 7 isolated limb movements with an index of 1.4. The patient had 0 periodic limb movements with index of 0. Patient had a total of 7 limb movements with a total limb movement index of 1.4. Oximetry Data The patient had an average oxygen saturation of 91.5% in sleep with a minimum oxygen saturation of 81.0% and a maximum oxygen saturation of 98.0%. The patient had 193 oxygen desaturations that were 4% or greater resulting in an Oxygen Desaturation Index of 39.2.? The patient spent 60.1 minutes, 14.3% of total sleep time with an oxygen saturation below 88%. Snoring Profile Moderate snoring was present in the beginning of the study. The snoring resolved once he was titrated to BPAP 25/19 cm H2O. Cardiac Profile The EKG showed normal sinus rhythm with rare PVCs. The patient had an average pulse rate of 82.0 bpm with a minimum pulse rate of 66.0 bpm and a maximum pulse rate of 99.0 bpm. ? EEG Profile No signs of seizure activity seen. Assessment and Plan Assessment and Plan (1) Obstructive sleep apnea: Code(s): G47.33 - Obstructive sleep apnea (adult) (pediatric) Status: Acute Assessment and Plan: The patient was started on CPAP 5 cm H2O and titrated to BPAP 25/19 cm H2O due to hypopneas. The patient's sleep apnea resolved on the final pressure setting. I recommend that the patient be prescribed BPAP 25/19 cm H2O, size large Resmed AirTouch F20 full face mask, BPAP filters/tubing and heated humidity. This should be used with all episodes of sleep.? Compliance should be reviewed within 31-90 days of starting therapy for usage greater than 4 hours per night greater than 70% of the nights. The patient should be asked about symptoms such as?excessive daytime sleepiness, quality of sleep, decreased nocturia, increased?mental functioning such as memory, mood, and concentration. Data The data obtained during this sleep study is adequate for interpretation. Certification This sleep study has been reviewed by a board certified sleep medicine physician.
[2025-05-22 10:39] VITALS: BMI 34.7
== END 2025-04-26 06:23 | disposition home or self-care (01) ==
PROVIDERS: PCP Family Medicine; Visit Provider Nurse Practitioner Family
DX: G47.33 Obstructive sleep apnea (adult) (pediatric) (principal); I10 Essential (primary) hypertension
CPT/HCPCS: 95811

== ENCOUNTER 2025-06-24 09:43 | Outpatient (CLI) | payer BC, SELFPAY ==
[2025-06-24 10:16] LABS: Hematocrit 53.0 % (42.0-52.0); Hemoglobin 18.3 g/dL (14.0-18.0); Immature Granulocyte Percent A 0.5 % (0-0.5); Lymphocytes Absolute Auto 1.52 K/mm3 (0.9-3.2); Mean Corpuscular HGB Conc 34.5 g/dl (32-36); Mean Corpuscular Hemoglobin 31.5 pg (26-34); Mean Corpuscular Volume 91.2 fl (80-100); Nucleated Red Blood Cells Absolute Auto 0.000 K/mm3 (0.0-0.012); Nucleated Red Blood Cells Perc 0.0 % (0.0-0.2); Platelet Count Result 283 k/mm3 (150-375); Red Blood Count 5.81 M/mm3 (4.6-6.20); White Blood Count 4.2 K/mm3 (4.5-10.0)
[2025-06-24 10:41] LABS: Alanine Aminotransferase 82 U/L (6-50); Albumin Level 5.1 g/dL (3.5-5.1); Alkaline Phosphatase 57 U/L (38-126); Anion Gap 9 mmol/L (4-12); Aspartate Amino Transferase 63 U/L (17-59); Bilirubin,Total 1.2 mg/dL (0.2-1.3); Blood Urea Nitrogen 22 mg/dL (9-20); Calcium 9.7 mg/dL (8.4-10.2); Carbon Dioxide 29 mmol/L (22-30); Chloride 94 mmol/L (98-107); Cholesterol 270 mg/dL (0-200); Estimated Glomerular Filt Rate > 60; Glucose 102 mg/dL (65-110); HDL Direct 39 mg/dL; Potassium 4.2 mmol/L (3.4-5.0); Sodium 132 mmol/L (137-145); Total Protein 8.8 g/dL (6.3-8.2); Triglycerides 85 mg/dL (<150)
[2025-06-24 10:43] LABS: Hemoglobin A1C 5.5 % (<5.7)
[2025-06-24 10:49] LABS: Free T4 Free Thyroxine 1.08 ng/dL (0.78-2.19)
[2025-06-24 11:16] LABS: Thyroid Stimulating Hormone 0.716 uIU/mL (0.465-4.680)
[2025-06-24 11:35] LABS: Vitamin B12 614.0 pg/mL (239-931)
== END 2025-06-24 09:44 | disposition home or self-care (01) ==
LOC: ANHLAB 09:45
PROVIDERS: PCP Family Medicine; Visit Provider Nurse Practitioner Family
DX: Z13.21 Encounter for screening for nutritional disorder (principal); E78.5 Hyperlipidemia, unspecified; Z13.29 Encounter for screening for other suspected endocrine disorder; E55.9 Vitamin D deficiency, unspecified
CPT/HCPCS: 36415; 80053; 80061; 82306; 82607; 83036; 84439; 84443; 85025